=== PATIENT | female | born 1995 | race Caucasian/White ===

== ENCOUNTER 2016-03-28 12:56 | Emergency (ER) | payer OTHER ==
[~2016-03-28] VITALS: Ht 160 cm; Wt 62.2 kg
[2016-03-28] MEDS ORDERED: MICROGESTIN1 EAC1 PO (13:14)
[2016-03-28] MEDS ORDERED: XANAX0.25 MG PO (13:15)
[2016-03-28] MEDS ORDERED: VENTOLIN HFA18 GM IH (13:16)
[2016-03-28 15:29] VITALS: BP 123/78
== END 2016-03-28 15:31 | disposition home or self-care (01) ==
LOC: EME 12:56 → RME 12:56
DX: J20.9 Acute bronchitis, unspecified (principal); F17.200 Nicotine dependence, unspecified, uncomplicated
CPT/HCPCS: 71020; 94664; 99281; 99284

== ENCOUNTER 2016-04-21 11:41 | Emergency (ER) | payer OTHER ==
[~2016-04-21] VITALS: Ht 160 cm; Wt 61.0 kg
[~2016-04-21 11:41] MED LIST: MICROGESTIN1 EAC1 PO; VENTOLIN HFA18 GM IH; XANAX0.25 MG PO
[2016-04-21 13:42] VITALS: BP 94/77
[2016-04-21] MEDS ORDERED: AMOXICILLIN500 MG PO (13:48)
== END 2016-04-21 14:00 | disposition home or self-care (01) ==
LOC: EME 11:41
DX: H72.91 Unspecified perforation of tympanic membrane, right ear (principal); Y04.0XXA Assault by unarmed brawl or fight, initial encounter; Y07.03 Male partner, perpetrator of maltreatment and neglect
CPT/HCPCS: 71020; 72040; 99281; 99284

== ENCOUNTER 2016-08-28 13:58 | Emergency (ER) | payer OTHER ==
[~2016-08-28] VITALS: Ht 160 cm; Wt 57.5 kg
[~2016-08-28 13:58] MED LIST changes: +AMOXICILLIN500 MG PO
[2016-08-28 15:50] LABS: HEMATOCRIT 40.1 % (36.0-46.0); MCH 29.6 PG (29.0-34.0); MCHC 33.2 G/DL (30.0-36.0); MCV 89.1 FL (83-99); MEAN PLAT.VOLUME 11.1 uM^3 (9.5-12.4); PLATELET COUNT 207 K/uL (156-360); WHITE BLOOD COUNT 4.7 K/uL (4.1-10.2)
[2016-08-28 16:04] LABS: CHLORIDE 104 mEq/L (99-109); INTER. NORMALIZED RATIO 1.1; POTASSIUM 3.9 mEq/L (3.7-5.4); PROTHROMBIN TIME 11.3 (9.2-11.2); PTT 27.1 (25-32); SODIUM 137 mEq/L (136-147)
[2016-08-28 16:06] LABS: GLUCOSE 87 mg/dL (70-99)
[2016-08-28 16:08] LABS: ANION GAP 10 MEQ/L (2-14); TOTAL BILIRUBIN 0.5 mg/dL (0.0-1.0)
[2016-08-28 16:10] LABS: ALKALINE PHOSPHATASE 55 IU/L (3-129); GFR ESTIMATE (CALCULATED) > 59 mL/min/
[2016-08-28 16:11] LABS: UREA NITROGEN (BUN) 10 mg/dL (9-23)
[2016-08-28 16:14] LABS: TROP-I INTERPRETATION NEGATIVE; TROPONIN-I < 0.01 ng/mL (0.0-0.30)
[2016-08-28 16:19] LABS: ADD MIUA? YES; BILIRUBIN NEGATIVE; BLOOD NEGATIVE; COLOR YELLOW ((YELLOW)); GLUCOSE (STRIP) NEGATIVE; KETONES NEGATIVE; LEUKOCYTES NEGATIVE; NITRITE NEGATIVE; PROTEIN (STRIP) NEGATIVE; SPECIFIC GRAVITY 1.012 (1.000-1.030); UROBILINOGEN 0.2 MG/DL (0.2-1.0)
[2016-08-28 16:20] LABS: QUANTITATIVE HCG < 4.0 MIU/ML
[2016-08-28 16:27] LABS: BACTERIA NONE SEEN /HPF; EPITHELIAL CELLS RARE /HPF; MUCUS NONE SEEN /LPF; RED BLOOD CELLS NONE SEEN /HPF (0-5); UCUL ADDED? NO; WHITE BLOOD CELLS 0-5 /HPF (0-5)
[2016-08-28 17:21] VITALS: BP 141/78
== END 2016-08-28 17:22 | disposition home or self-care (01) ==
LOC: EME 13:58
PROVIDERS: Nurse Practitioner Family
DX: M54.12 Radiculopathy, cervical region (principal); R07.89 Other chest pain; F17.200 Nicotine dependence, unspecified, uncomplicated
CPT/HCPCS: 71020; 80053; 81003; 84484; 84702; 85027; 85610; 85730; 93005; 99281; 99283